=== PATIENT | female | born 1995 | race Caucasian/White ===

== ENCOUNTER → 2017-08-03 | Outpatient (CLI) | payer OTHER | LOC: COL.RAD 10:26 | DX: R10.12 Left upper quadrant pain (principal); R18.8 Other ascites; N83.202 Unspecified ovarian cyst, left side; K76.89 Other specified diseases of liver; D18.03 Hemangioma of intra-abdominal structures | CPT/HCPCS: J7050; Q9967 ==

== ENCOUNTER 2017-09-21 21:13 | Emergency (ER) | payer OTHER ==
[~2017-09-21] VITALS: Ht 170.2 cm; Wt 55.5 kg
[2017-09-21 21:20] VITALS: BP 113/63; TEMP 97.8
[2017-09-21] MEDS ORDERED: ADDERALL XR25 MG PO (21:23)
[2017-09-21] MEDS ORDERED: FLEXERIL 1010 MG/TAB PO (22:04)
[2017-09-21] MEDS ORDERED: VOLTAREN 75 DR75 MG PO (22:04)
[2017-09-21 22:11] VITALS: PULSE 68
== END 2017-09-21 22:12 | disposition home or self-care (01) ==
LOC: COL.ER 21:13
DX: S16.1XXA Strain of muscle, fascia and tendon at neck level, initial encounter (principal); S09.90XA Unspecified injury of head, initial encounter; F90.9 Attention-deficit hyperactivity disorder, unspecified type; W17.89XA Other fall from one level to another, initial encounter; Y93.79 Activity, other specified sports and athletics; Y92.219 Unspecified school as the place of occurrence of the external cause